=== PATIENT | female | born 1955 | race Caucasian/White ===

== ENCOUNTER 2018-09-18 10:12 | Outpatient (CLI) | payer MEDICAID | END 2018-09-18 10:13 | disposition home or self-care (01) | LOC: C.MAMMO 10:12 | DX: Z12.31 Encounter for screening mammogram for malignant neoplasm of breast (principal) ==

== ENCOUNTER 2018-11-12 16:14 | Observation (INO) | payer MEDICAID ==
[2018-11-12 18:15] LABS: BASO # 0.1 K/uL (0.0-0.2); BASO % 0.8 % (0.0-2.0); EOS # 0.2 K/uL (0.0-0.7); EOS % 2.9 % (0.0-4.0); HEMOGLOBIN 14.1 g/dL (11.0-16.0); LYMPH # 2.7 K/uL (1.0-4.3); LYMPH % 33.7 % (20.0-40.0); MEAN CELL VOLUME 86.1 fL (81.0-99.0); MEAN CORPUSCULAR HGB CONC 33.7 g/dL (33.0-37.0); MEAN PLATELET VOLUME 9.6 fL (7.2-11.7); MONO # 0.6 K/uL (0.0-0.8); MONO % 7.1 % (0.0-10.0); NEUT # 4.5 K/uL (1.8-7.0); NEUT % 55.5 % (50.0-75.0); RBC 4.87 Mil/uL (3.80-5.20); RED CELL DISTRIBUTION WIDTH 13.4 % (11.5-14.5); WHITE BLOOD COUNT 8.1 K/uL (4.8-10.8)
--- NOTE | 2018-11-12 18:19 | C.PDOC ---
History Of Present Illness 63 year old female presents to ED with complaint of having palpitations yesterday with SOB. Patient reports also having felt nausea yesterday that has resolved today. Patient reports developing frontal headache and neck pain . Patient denies chest pain, nausea, and vomiting. Time Seen by Provider: 11/12/18 17:54 Chief Complaint (Nursing): Headache History Per: Patient History/Exam Limitations: no limitations Onset/Duration Of Symptoms: Days (1) Current Symptoms Are (Timing): Still Present Quality: "Pain" Past Medical History Reviewed: Historical Data, Nursing Documentation, Vital Signs Vital Signs: Last Vital Signs Temp 97.6 F 11/12/18 16:36 Pulse 84 11/12/18 16:36 Resp 18 11/12/18 16:36 BP 160/87 H 11/12/18 16:36 Pulse Ox 99 11/12/18 16:36 - Medical History PMH: HTN, Hypercholesterolemia, Hypothyroidism Surgical History: No Surg Hx Family History: States: Unknown Family Hx - Social History Hx Alcohol Use: No Hx Substance Use: No - Immunization History Hx Tetanus Toxoid Vaccination: No Hx Influenza Vaccination: No Hx Pneumococcal Vaccination: No Review Of Systems Except As Marked, All Systems Reviewed And Found Negative. Cardiovascular: Positive for: Palpitations Respiratory: Positive for: Shortness of Breath Musculoskeletal: Positive for: Neck Pain Neurological: Positive for: Headache (head pain) Physical Exam - Physical Exam Appears: Well, Non-toxic, No Acute Distress Skin: Normal Color, Warm, Dry Head: Atraumatic, Normacephalic Eye(s): bilateral: Normal Inspection, PERRL, EOMI Nose: Normal Oral Mucosa: Moist Neck: Supple Chest: Symmetrical, No Deformity Cardiovascular: Rhythm Regular, No Murmur Respiratory: No Accessory Muscle Use, No Rales, No Rhonchi, No Wheezing Gastrointestinal/Abdominal: Normal Exam, Soft, No Tenderness Extremity: Bilateral: Atraumatic, Normal Color And Temperature, Normal ROM Neurological/Psych: Oriented x3, Normal Speech ED Course And Treatment - Laboratory Results Result Diagrams: 11/12/18 18:12 11/12/18 18:12 ECG: Interpreted By Me, Viewed By Me ECG Rhythm: Sinus Rhythm ECG Interpretation: Normal Interpretation Of ECG: Normal interval. LVH. Poor R-wave progression. No ST/T wave abnormalities. Rate From EC O2 Sat by Pulse Oximetry: 99 (in RA) Medical Decision Making Medical Decision Making: Assessment: Palpitations and headache Plan: Head CT, EKG, and CXR Labs ordered with troponin and UA Patient given Benadryl IVP and Reglan IVP case s/o to Dr. Lucero at 1900 pending labs, reevaluation and disposition Disposition Discussed With : Gail Lucero - Disposition Disposition Time: 19:00 Condition: STABLE Forms: [employer] ([place]) - Clinical Impression Clinical Impression: Headache, Palpitations - Scribe Statement The provider has reviewed the documentation as recorded by the Scribe (Lynn Salvador) All medical record entries made by the Scribe were at my direction and personally dictated by me. I have reviewed the chart and agree that the record accurately reflects my personal performance of the history, physical exam, medical decision making, and the department course for this patient. I have also personally directed, reviewed, and agree with the discharge instructions and disposition.
[2018-11-12 18:23] LABS: SQUAMOUS EPITHIAL < 1 /hpf (0-5); URINE BACTERIA RARE (<OCC); URINE BILIRUBIN NEGATIVE (NEGATIVE); URINE BLOOD NEGATIVE (NEGATIVE); URINE CLARITY Clear (Clear); URINE COLOR Straw (YELLOW); URINE GLUCOSE (UA) NORMAL (Normal); URINE LEUKOCYTE ESTERASE NEG Leu/uL (Negative); URINE PROTEIN 2+ mg/dL (NEGATIVE); URINE UROBILINOGEN NORMAL mg/dL (0.2-1.0)
[2018-11-12 18:25] LABS: ALB/GLOB RATIO 1.3 (1.0-2.1); ALBUMIN 4.6 g/dL (3.5-5.0); ALT/SGPT 17 U/L (9-52); AST/SGOT 19 U/L (14-36); BLOOD UREA NITROGEN 43 mg/dL (7-17); CALCIUM 10.9 mg/dl (8.6-10.4); GFR NON-AFRICAN AMERICAN 45
[2018-11-12] MEDS ORDERED: DiphenhydrAMINE 50 mg/ml Inj IVP STA (18:43)
[2018-11-12] MEDS ORDERED: DiphenhydrAMINE 50 mg/ml Inj ONE (19:06)
[2018-11-12] MEDS ORDERED: INSULIN GLARGINE HUM REC ANLOG 30 UNIT SQ SCH (22:00)
[2018-11-12] MEDS ORDERED: Home Med 1 UNIT (Simvastatin [Simvastatin] 40 MG) PO SCH (22:00)
[2018-11-13] MEDS ORDERED: Apap-Butalbital-Caffeine 325-50-40mg Tab PO PRN (00:55)
[2018-11-13] MEDS: Levothyroxine 125 MCG TAB PO SCH ×2 (05:45→09:52)
--- NOTE | 2018-11-13 08:26 | CT ---
Date of service: 11/12/2018 PROCEDURE: CT HEAD WITHOUT CONTRAST. HISTORY: dizziness COMPARISON: None available. TECHNIQUE: Axial computed tomography images were obtained through the head/brain without intravenous contrast. Radiation dose: Total exam DLP = 918.55 mGy-cm. This CT exam was performed using one or more of the following dose reduction techniques: Automated exposure control, adjustment of the mA and/or kV according to patient size, and/or use of iterative reconstruction technique. FINDINGS: HEMORRHAGE: No intracranial hemorrhage. BRAIN: No mass effect or edema. Scattered focal lucencies in the subcortical and periventricular white matter suggestive for chronic microvascular ischemic change. Bilateral basal ganglia calcifications. Diffuse generalized parenchymal atrophy. VENTRICLES: Unremarkable. No hydrocephalus. CALVARIUM: Unremarkable. PARANASAL SINUSES: Unremarkable as visualized. No significant inflammatory changes. MASTOID AIR CELLS: Unremarkable as visualized. No inflammatory changes. OTHER FINDINGS: Intracranial atherosclerotic calcification. IMPRESSION: No acute intracranial abnormality. Chronic microvascular ischemic changes. If symptoms persists, consider correlation with MRI. A preliminary report was generated at 8:20 p.m. on 11/12/[address] Ventura Felix from [employer].
--- NOTE | 2018-11-13 09:29 | RAD ---
Date of service: 11/12/2018 HISTORY: Shortness of breath COMPARISON: None available. TECHNIQUE: 1 view obtained. FINDINGS: LUNGS: No active pulmonary disease. PLEURA: No significant pleural effusion identified, no pneumothorax apparent. CARDIOVASCULAR: No aortic atherosclerotic calcification present. Normal cardiac size. No pulmonary vascular congestion. OSSEOUS STRUCTURES: Degenerative changes in the spine. VISUALIZED UPPER ABDOMEN: Normal. OTHER FINDINGS: None. IMPRESSION: No active disease.
--- NOTE | 2018-11-13 09:42 | CP.PCM.PN ---
Subjective - Date & Time of Evaluation Date of Evaluation: 11/13/18 Time of Evaluation: 09:38 - Subjective Subjective: 63 year old female with a past medical history of hypertension, diabetes, hypercholesterolemia and hypothyroidism who comes in after reporting dizziness and palpitations for the past couple of days. Patient states she was sitting at home when she felt her heart begin to race very fast associated with diaphoresis. Patient reports taking an Asprin afterwards and states her symptoms subsided. Patient denies this happening in the past before. Patient denies any fevers, chills, changes in vision, chest pain, shortness of breath, abdominal pain, syncopal episodes, or any other complaints. PMH: htn, dm, hypercholesterolemia, hypothyroidism Surgical history:denies Allergies: Denies Social history:Denies alcohol or tobacco use. Denies illicit drug use. Objective - Vital Signs/Intake and Output Vital Signs (last 24 hours): Temp Pulse Resp BP Pulse Ox 97.5 F L 85 20 132/83 98 11/13/18 07:00 11/13/18 07:07 11/13/18 07:00 11/13/18 07:00 11/13/18 07:00 - Medications Medications: Current Medications Acetaminophen/Butalbital/Caffeine (Fioricet) 1 tab PO Q6 PRN PRN Reason: Headache Aspirin (Ecotrin) 81 mg PO DAILY [facility] Enoxaparin Sodium (Lovenox) 40 mg SC DAILY [facility] Furosemide (Lasix) 20 mg PO DAILY [facility] Glimepiride (Amaryl) 4 mg PO BID [facility] Insulin Aspart (Novolog) 5 unit SC TID [facility] Insulin Glargine (Lantus) 30 unit SC HS [facility] Levothyroxine Sodium (Synthroid) 125 mcg PO DAILY [facility] Last Admin: 11/13/18 05:45 Dose: 125 mcg Losartan Potassium (Cozaar) 100 mg PO DAILY [facility] Metformin HCl (Glucophage) 500 mg PO BID [facility] Rosuvastatin Calcium (Crestor) 10 mg PO HS [facility] - Labs Labs: 11/12/18 18:12 11/12/18 18:12 - Head Exam Head Exam: ATRAUMATIC, NORMAL INSPECTION - Eye Exam Eye Exam: EOMI, Normal appearance, PERRL. absent: Periorbital tenderness Pupil Exam: NORMAL ACCOMODATION - ENT Exam ENT Exam: Mucous Membranes Moist, Normal Oropharynx - Respiratory Exam Respiratory Exam: Clear to Ausculation Bilateral, NORMAL BREATHING PATTERN. absent: Chest Wall Tenderness, Prolonged Expiratory Phase - Cardiovascular Exam Cardiovascular Exam: REGULAR RHYTHM, +S1, +S2 - GI/Abdominal Exam GI & Abdominal Exam: Soft, Normal Bowel Sounds. absent: Hyperactive Bowel Sounds - Extremities Exam Extremities Exam: Full ROM, Normal Capillary Refill, Normal Inspection. absent: Pedal Edema - Back Exam Back Exam: NORMAL INSPECTION. absent: CVA tenderness (R), paraspinal tenderness - Neurological Exam Neurological Exam: Alert, Awake, CN II-XII Intact, Oriented x3 - Psychiatric Exam Psychiatric exam: Normal Mood - Skin Skin Exam: Dry, Intact, Normal Color, Warm Assessment and Plan - Assessment and Plan (Free Text) Assessment: 63 year old female with a past medical history of hypertension, diabetes, hypercholesterolemia and hypothyroidism who comes in after reporting dizziness and palpitations for the past couple of days. Plan: Dizziness -EKG@ nsr, poor R wave progression -Head ct: negative for acute abnormalities, chronic microvascular changes -Echocardiogram taken. Pending final read. Hypertension -Continue Cozaar 100mg PO DAILY DM -Metformin 500mg PO BID -Glimepiride 4mg PO BID -Insulin 30 unit SC HS -Insulin Aspart 5 unit SC TID -Aspirin 81mg PO DAILY Hypothyroidism -TSH: 5.29 -Free T4 ordered .Will f/u with results. -Continue Levothyroxine Hypercholesterolemia -Continue Rosuvastatin 10mg PO HS ppx -Lovenox Plan discussed with Attending Dr. Alfred. Biju Mcintyre, PGY-2
[2018-11-13] MEDS: (Novolog) Insulin Aspart, Recombinant 100 u/ml 10 ml vial SC SCH ×3 (09:50→17:31)
[2018-11-13] MEDS: Enoxaparin 40 mg Syringe SC SCH (09:51)
--- NOTE | 2018-11-13 19:50 | CARD ---
APPROVED REPORT Date of service: 11/13/2018 EXAM: Two-dimensional and M-mode echocardiogram with Doppler and color Doppler. Other Information Quality : GoodRhythm : INDICATION Palpitations RISK FACTORS Hypertension 2D DIMENSIONS IVSd0.8 (0.7-1.1cm)LVDd4.0 (3.9-5.9cm) PWd1.1 (0.7-1.1cm)LA Sebgwx23 (18-58mL) LVDs2.3 (2.5-4.0cm)FS (%) 42.6 % LVEF (%)65.0 (>50%)LVEF ([place] C[place]'s)59.94 % M-Mode DIMENSIONS Left Atrium (MM)3.27 (2.5-4.0cm)IVSd0.85 (0.7-1.1cm) Aortic Root2.81 (2.2-3.7cm)LVDd4.48 (4.0-5.6cm) Aortic Cusp Exc.1.76 (1.5-2.0cm)PWd0.96 (0.7-1.1cm) FS (%) 37 %LVDs2.81 (2.0-3.8cm) LVEF (%)67 (>50%) Mitral Valve MV E Yroqsibx22.6cm/sMV A Xtsrzeay65.4cm/sE/A ratio0.6 TDI Lateral E' Peak V6.87cm/sMedial E' Peak V8.29cm/sE/Lateral E'7.9 E/Medial E'6.6 Tricuspid Valve TR Peak Nmkowbym069ex/sTR Peak Gr.65qfAyFQDH35jhTj LEFT VENTRICLE The left ventricle is normal size. There is normal left ventricular wall thickness. The left ventricular function is normal. The left ventricular ejection fraction is within the normal range. 70% No regional wall motion abnormalities noted. Transmitral Doppler flow pattern is Grade I-abnormal relaxation pattern. No left ventricle thrombus noted on this study. There is no ventricular septal defect visualized. There is no left ventricular aneurysm. There is no mass noted in the left ventricle. RIGHT VENTRICLE The right ventricle is normal size. There is normal right ventricular wall thickness. The right ventricular systolic function is normal. ATRIA The left atrium size is normal. The right atrium size is normal. The interatrial septum is intact with no evidence for an atrial septal defect. AORTIC VALVE The aortic valve is normal in structure and function. No aortic regurgitation is present. There is no aortic valvular stenosis. There is no aortic valvular vegetation. MITRAL VALVE The mitral valve is normal in structure and function. There is no evidence of mitral valve prolapse. There is no mitral valve stenosis. There is no mitral valve regurgitation noted. TRICUSPID VALVE The tricuspid valve is normal in structure and function. There is no tricuspid valve regurgitation noted. There is no tricuspid valve prolapse or vegetation. There is no tricuspid valve stenosis. PULMONIC VALVE The pulmonary valve is normal in structure and function. There is no pulmonic valvular regurgitation. There is no pulmonic valvular stenosis. GREAT VESSELS The aortic root is normal in size. The ascending aorta is normal in size. The pulmonary artery is normal. The IVC is normal in size and collapses >50% with inspiration. PERICARDIAL EFFUSION The pericardium appears normal. There is no pleural effusion. <Conclusion> Normal left ventricular systolic function. Normal Doppler Transmitral Doppler flow pattern is Grade I-abnormal relaxation pattern.
[2018-11-13] MEDS: (Lantus) Insulin Glargine, Recombinant SC SCH (21:39)
--- NOTE | 2018-11-13 23:20 | CP.PCM.PN ---
Subjective - Date & Time of Evaluation Date of Evaluation: 11/13/18 Time of Evaluation: 16:20 - Subjective Subjective: Patient seen and evaluated Admitted for chest pain Multiple cardiac risk factors For stress test in am Objective - Vital Signs/Intake and Output Vital Signs (last 24 hours): Temp Pulse Resp BP Pulse Ox 97.8 F 72 20 136/77 100 11/13/18 15:00 11/13/18 16:56 11/13/18 15:00 11/13/18 15:00 11/13/18 15:00 Intake and Output: 11/13/18 11/14/18 18:59 06:59 Intake Total 350 Balance 350 - Medications Medications: Current Medications Acetaminophen/Butalbital/Caffeine (Fioricet) 1 tab PO Q6 PRN PRN Reason: Headache Aspirin (Ecotrin) 81 mg PO DAILY [facility] Last Admin: 11/13/18 09:51 Dose: 81 mg Enoxaparin Sodium (Lovenox) 40 mg SC DAILY [facility] Last Admin: 11/13/18 09:51 Dose: 40 mg Furosemide (Lasix) 20 mg PO DAILY [facility] Last Admin: 11/13/18 09:51 Dose: 20 mg Glimepiride (Amaryl) 4 mg PO BID [facility] Last Admin: 11/13/18 17:29 Dose: 4 mg Insulin Aspart (Novolog) 5 unit SC TID [facility] Last Admin: 11/13/18 17:31 Dose: Not Given Insulin Glargine (Lantus) 30 unit SC HS [facility] Last Admin: 11/13/18 21:39 Dose: Not Given Levothyroxine Sodium (Synthroid) 125 mcg PO 0630 [facility] Losartan Potassium (Cozaar) 100 mg PO DAILY [facility] Last Admin: 11/13/18 09:50 Dose: 100 mg Metformin HCl (Glucophage) 500 mg PO BID [facility] Last Admin: 11/13/18 17:29 Dose: 500 mg Rosuvastatin Calcium (Crestor) 10 mg PO HS [facility] Last Admin: 11/13/18 21:38 Dose: 10 mg - Labs Labs: 11/12/18 18:12 11/12/18 18:12
[2018-11-14] MEDS: Levothyroxine 125 MCG TAB PO SCH (05:50)
[2018-11-14 08:14] LABS: BASO # 0.1 K/uL (0.0-0.2); BASO % 0.7 % (0.0-2.0); EOS # 0.3 K/uL (0.0-0.7); EOS % 3.4 % (0.0-4.0); HEMOGLOBIN 14.1 g/dL (11.0-16.0); LYMPH # 3.3 K/uL (1.0-4.3); LYMPH % 38.6 % (20.0-40.0); MEAN CORPUSCULAR HEMOGLOBIN 29.3 pg (27.0-31.0); MEAN CORPUSCULAR HGB CONC 33.7 g/dL (33.0-37.0); MEAN PLATELET VOLUME 9.9 fL (7.2-11.7); MONO # 0.8 K/uL (0.0-0.8); MONO % 8.8 % (0.0-10.0); NEUT # 4.2 K/uL (1.8-7.0); NEUT % 48.5 % (50.0-75.0); NRBC % 0.1 % (0.0-2.0); RBC 4.79 Mil/uL (3.80-5.20); RED CELL DISTRIBUTION WIDTH 13.7 % (11.5-14.5); WHITE BLOOD COUNT 8.6 K/uL (4.8-10.8)
[2018-11-14 08:40] LABS: ALB/GLOB RATIO 1.6 (1.0-2.1); ALBUMIN 4.7 g/dL (3.5-5.0); CALCIUM 10.8 mg/dl (8.6-10.4)
[2018-11-14] MEDS ORDERED: Caffeine Citrated **INJ** 20 MG/ML IV ONE (08:53)
[2018-11-14] MEDS: Sodium Chloride 0.9% 1,000 ML IV SCH ×3 (10:38→22:10)
[2018-11-14] MEDS: (Novolog) Insulin Aspart, Recombinant 100 u/ml 10 ml vial SC SCH ×6 (11:00→21:14)
[2018-11-14] MEDS: Enoxaparin 40 mg Syringe SC SCH (11:00)
--- NOTE | 2018-11-14 11:20 | CP.PCM.PN ---
Subjective - Date & Time of Evaluation Date of Evaluation: 11/14/18 Time of Evaluation: 11:20 - Subjective Subjective: Medicine Progress Note - Dr Alfred's Service Patient seen and examined at bedside. Per nursing no acute events overnight. Patient is NPO for stress test today. Denies any palpitations or headaches today. Offers no complaints at this time. Objective - Vital Signs/Intake and Output Vital Signs (last 24 hours): Temp Pulse Resp BP Pulse Ox 97.7 F 83 20 130/76 100 11/13/18 23:35 11/14/18 07:48 11/13/18 23:35 11/13/18 23:35 11/13/18 23:35 - Medications Medications: Current Medications Acetaminophen/Butalbital/Caffeine (Fioricet) 1 tab PO Q6 PRN PRN Reason: Headache Aspirin (Ecotrin) 81 mg PO DAILY [facility] Last Admin: 11/14/18 10:37 Dose: 81 mg Enoxaparin Sodium (Lovenox) 40 mg SC DAILY [facility] Last Admin: 11/14/18 11:00 Dose: Not Given Furosemide (Lasix) 20 mg PO DAILY [facility] Last Admin: 11/13/18 09:51 Dose: 20 mg Glimepiride (Amaryl) 4 mg PO BID [facility] Last Admin: 11/13/18 17:29 Dose: 4 mg Sodium Chloride (Sodium Chloride 0.9%) 1,000 mls @ 125 mls/hr IV .Q8H [facility] Last Admin: 11/14/18 10:38 Dose: 125 mls/hr Insulin Aspart (Novolog) 5 unit SC TID [facility] Last Admin: 11/14/18 11:00 Dose: Not Given Insulin Aspart (Novolog) 0 unit SC ACHS [facility]; Protocol Insulin Glargine (Lantus) 30 unit SC [facility] Last Admin: 11/13/18 21:39 Dose: Not Given Levothyroxine Sodium (Synthroid) 125 mcg PO 0630 [facility] Last Admin: 11/14/18 05:50 Dose: 125 mcg Losartan Potassium (Cozaar) 100 mg PO DAILY [facility] Last Admin: 11/14/18 10:37 Dose: 100 mg Metformin HCl (Glucophage) 500 mg PO BID [facility] Last Admin: 11/13/18 17:29 Dose: 500 mg Rosuvastatin Calcium (Crestor) 10 mg PO HS [facility] Last Admin: 11/13/18 21:38 Dose: 10 mg - Labs Labs: 11/14/18 07:50 11/14/18 07:50 - Additional Findings Additional findings: - Head Exam Head Exam: ATRAUMATIC, NORMAL INSPECTION - Eye Exam Eye Exam: EOMI, Normal appearance, PERRL. absent: Periorbital tenderness Pupil Exam: NORMAL ACCOMODATION - ENT Exam ENT Exam: Mucous Membranes Moist, Normal Oropharynx - Respiratory Exam Respiratory Exam: Clear to Ausculation Bilateral, NORMAL BREATHING PATTERN. absent: Chest Wall Tenderness, Prolonged Expiratory Phase - Cardiovascular Exam Cardiovascular Exam: REGULAR RHYTHM, +S1, +S2 - GI/Abdominal Exam GI & Abdominal Exam: Soft, Normal Bowel Sounds. absent: Hyperactive Bowel Sounds - Extremities Exam Extremities Exam: Full ROM, Normal Capillary Refill, Normal Inspection. absent: Pedal Edema - Back Exam Back Exam: NORMAL INSPECTION. absent: CVA tenderness (R), paraspinal tenderness - Neurological Exam Neurological Exam: Alert, Awake, CN II-XII Intact, Oriented x3 - Psychiatric Exam Psychiatric exam: Normal Mood - Skin Skin Exam: Dry, Intact, Normal Color, Warm Assessment and Plan - Assessment and Plan (Free Text) Assessment: 63 year old female with a past medical history of hypertension, diabetes, hypercholesterolemia and hypothyroidism who comes in after reporting dizziness and palpitations for the past couple of days. Plan: Dizziness, Palpitations -Stable, afebrile -Monitor on Telemetry -EKG@ nsr, poor R wave progression -Head CT: negative for acute abnormalities, chronic microvascular changes -Echocardiogram showed grade I abnormal relaxtion pattern -NPO for stress test today Hypertension -Continue Cozaar 100mg PO DAILY Acute Kidney Injury -BUN/Cr 51/1.3 today, unknown baseline -Started on IV fluid hydration -Avoid Nephrotoxic agents -F/U repeat BMP tomorrow DM -Metformin 500mg PO BID, Glimepiride 4mg PO BID (held) -Insulin 30 unit SC HS, Insulin Aspart 5 unit SC TID -ISS and accuchecks ACHS -Aspirin 81mg PO DAILY Hypothyroidism -TSH: 5.29 -Free T4 within normal range -Patient to have repeat TFT outpatient -Continue Levothyroxine 125mcg PO daily Hypercholesterolemia -Continue Rosuvastatin 10mg PO HS Gastritis -Pepcid 20mg PO BID GI/DVT ppx -Pepcid 20mg PO BID -Lovenox 40mg SC daily DISPO: Awaiting stress test results. Plan discussed with Dr Tima Pollack DO PGY-2
[2018-11-14] MEDS: (Lantus) Insulin Glargine, Recombinant SC SCH (21:13)
[2018-11-15] MEDS: Sodium Chloride 0.9% 1,000 ML IV SCH ×3 (00:45→10:43)
[2018-11-15] MEDS: Levothyroxine 125 MCG TAB PO SCH (06:24)
--- NOTE | 2018-11-15 06:27 | CARD ---
APPROVED REPORT Date of service: 11/14/2018 Protocol: LEXISCAN Test Type: LEXISCAN STRESS Test Indications: cp Medical History: cp Target HR: 157 bpm Resting ECG: NSR Resting Heart Rate: 103 bpm Resting Blood Pressure: 142/80mmHg submaximum (85%): 133 bpm TEST SUMMARY [id number]/80.0. INFUSIONDOSE 100:[id number]/.0. [id number]/80.0. PROCEDURE Pharmacologic stress testing was performed using 0.4mg per 5ml of regadenoson given intravenously over 7-10 seconds. POST EXERCISE Reason for Termination: Protocol Completed Target HR: No Max HR: 114 bpm 77% of Maximum Predicted HR: 157 bpm Exercise duration: 00:30 min:sec, 0 Stage Exercise capacity: 1.0METs Max Blood Pressure: 144/80mmHg Blood Pressure response to exercise: normal resting BP - appropriate response Heart Rate response to exercise: appropriate Chest Pain: No, none Angina index: 0 Arrhythmia: No, none ST Change: Yes, NS ST T CHANGES Deviation: 0 mm INTERPRETATION Stress EKG Conclusion: NEGATIVE LEXISCAN STRESS TEST NORMAL BP RESPONSE TO LEXISCAN NUCLEAR STUDIES TO BE READ SEPARATELY EXAM: Myocardial Perfusion STRESS/REST Imaging Protocol The imaging protocol used to acquire images was Stress Tc-99m/rest Tc-99m 1 day Stress Spect myocardial perfusion imaging was performed in supine position 45 minutes following the injection of 13.2 mCi of Tc-99 Myoview. Gated Rest Spect was performed 44 minutes after intravenous 32.4 mCi Tc-99 Myoview injection. The images were gated to evaluate regional wall motion and calculate ventricular ejection fraction.Images were reconstructed using backfilter projection method in short horizontal and verticle long axis. Spect slices were generated. RESTING DATA EDV45.82zySJ5.20L/min ESV11.00mlMyocardial Mass88.00g Av. Heart Rate67.00bpm EF76.00% STRESS DATA EDV58.83nqJO9.40L/min ESV12.00mlMyocardial Zjjw320.00g EF79.00% Regional WT score at stress:0.00 Regional WM score at stress:0.00 Summed WT score at stress:2.00 Av. Heart Rate74.00bpmSummed WM score at stress:0.00 LV Perf. Quant 17 Seg. SSS0.00 17 Seg. SRS0.00 17 Seg. SDS0.00 Stress Defect Extent (% LAD)0.00Rest Defect Extent (% LAD)0.00Rev. Defect Extent (% LAD)0.00 Stress Defect Extent (% LCX)0.00Rest Defect Extent (% LCX)0.00Rev. Defect Extent (% LCX)0.00 Stress Defect Extent (% RCA)0.00Rest Defect Extent (% RCA)0.00Rev. Defect Extent (% RCA)0.00 Stress Defect Extent (% LOVE)0.00Rest Defect Extent (% LOVE)0.00Rev. Defect Extent (% LOVE)0.00 IMPRESSION Normal Myocardial Perfusion exercise stress study Left Ventricle LV Function:Left ventricle systolic function is normal. The Ejection Fraction is >70%. Metabolism/Perfusion Defects: There is no stress-induced ischemia noted. There are no perfusion/metabolism defects. Conclusion 1. There is no stress-induced ischemia noted. 2. Left ventricle systolic function is normal. 3. The Ejection Fraction is >70%.
--- NOTE | 2018-11-15 06:52 | CARD ---
APPROVED REPORT Date of service: 11/12/2018 EKG Measurement Heart [id number] TN [id number] <Conclusion> Normal sinus rhythm Minimal voltage criteria for LVH, may be normal variant Anterior infarct, age undetermined Abnormal ECG
--- NOTE | 2018-11-15 07:27 | CP.PCM.PN ---
Subjective - Date & Time of Evaluation Date of Evaluation: 11/15/18 Time of Evaluation: 07:27 - Subjective Subjective: Medicine Progress Note- Dr Alfred's service Patient seen and examined at bedside. Per nursing no acute events overnight. Patient is doing well, reports having gastritis. Stress test was normal. Offers no other complaints at this time. Objective - Vital Signs/Intake and Output Vital Signs (last 24 hours): Temp Pulse Resp BP Pulse Ox 97.8 F 73 20 109/70 97 11/14/18 23:40 11/14/18 23:40 11/14/18 23:40 11/14/18 23:40 11/14/18 23:40 - Medications Medications: Current Medications Acetaminophen/Butalbital/Caffeine (Fioricet) 1 tab PO Q6 PRN PRN Reason: Headache Aspirin (Ecotrin) 81 mg PO DAILY [facility] Last Admin: 11/14/18 10:37 Dose: 81 mg Enoxaparin Sodium (Lovenox) 40 mg SC DAILY [facility] Last Admin: 11/14/18 11:00 Dose: Not Given Famotidine (Pepcid) 20 mg PO DAILY [facility] Last Admin: 11/14/18 18:18 Dose: 20 mg Furosemide (Lasix) 20 mg PO DAILY [facility] Last Admin: 11/13/18 09:51 Dose: 20 mg Glimepiride (Amaryl) 4 mg PO BID [facility] Last Admin: 11/13/18 17:29 Dose: 4 mg Sodium Chloride (Sodium Chloride 0.9%) 1,000 mls @ 125 mls/hr IV .Q8H [facility] Last Admin: 11/15/18 06:23 Dose: 125 mls/hr Insulin Aspart (Novolog) 5 unit SC TID [facility] Last Admin: 11/14/18 18:13 Dose: 5 units Insulin Aspart (Novolog) 0 unit SC ACHS [facility]; Protocol Last Admin: 11/14/18 21:14 Dose: Not Given Insulin Glargine (Lantus) 30 unit SC HS [facility] Last Admin: 11/14/18 21:13 Dose: 30 units Levothyroxine Sodium (Synthroid) 125 mcg PO 0630 [facility] Last Admin: 11/15/18 06:24 Dose: 125 mcg Losartan Potassium (Cozaar) 100 mg PO DAILY [facility] Last Admin: 11/14/18 10:37 Dose: 100 mg Metformin HCl (Glucophage) 500 mg PO BID [facility] Last Admin: 11/13/18 17:29 Dose: 500 mg Rosuvastatin Calcium (Crestor) 10 mg PO HS [facility] Last Admin: 11/14/18 21:12 Dose: 10 mg - Labs Labs: 11/14/18 07:50 11/14/18 07:50 - Additional Findings Additional findings: - Head Exam Head Exam: ATRAUMATIC, NORMAL INSPECTION - Eye Exam Eye Exam: EOMI, Normal appearance, PERRL. absent: Periorbital tenderness Pupil Exam: NORMAL ACCOMODATION - ENT Exam ENT Exam: Mucous Membranes Moist, Normal Oropharynx - Respiratory Exam Respiratory Exam: Clear to Ausculation Bilateral, NORMAL BREATHING PATTERN. absent: Chest Wall Tenderness, Prolonged Expiratory Phase - Cardiovascular Exam Cardiovascular Exam: REGULAR RHYTHM, +S1, +S2 - GI/Abdominal Exam GI & Abdominal Exam: Soft, Normal Bowel Sounds. absent: Hyperactive Bowel Sounds - Extremities Exam Extremities Exam: Full ROM, Normal Capillary Refill, Normal Inspection. absent: Pedal Edema - Back Exam Back Exam: NORMAL INSPECTION. absent: CVA tenderness (R), paraspinal tenderness - Neurological Exam Neurological Exam: Alert, Awake, CN II-XII Intact, Oriented x3 - Psychiatric Exam Psychiatric exam: Normal Mood - Skin Skin Exam: Dry, Intact, Normal Color, Warm Assessment and Plan - Assessment and Plan (Free Text) Assessment: 63 year old female with a past medical history of hypertension, diabetes, hypercholesterolemia and hypothyroidism who comes in after reporting dizziness and palpitations for the past couple of days. Plan: Dizziness, Palpitations -Stable, afebrile -Monitor on Telemetry -EKG@ nsr, poor R wave progression -Head CT: negative for acute abnormalities, chronic microvascular changes -Echocardiogram showed grade I abnormal relaxtion pattern -Went for stress test yesterday - normal Hypertension -Cozaar 100mg PO DAILY (discontinued) Acute Kidney Injury -BUN/Cr 42/1.3 today, unknown baseline -Patient reports that she has a history of kidney disease and follows with Dr Carlton philippe outpatient -Avoid Nephrotoxic agents Hyperkalemia -Potassium 6.0 this morning -Given Kayexylate 30mg PO x 1, Insulin 10 units IVP, D50 and Duonebs -Repeat BMP for 1pm -Cozaar discontinued and patient started on Norvasc 10mg PO daily DM -Metformin 500mg PO BID, Glimepiride 4mg PO BID (held) -Insulin 30 unit SC HS, Insulin Aspart 5 unit SC TID -ISS and accuchecks ACHS -Aspirin 81mg PO DAILY Hypothyroidism -TSH: 5.29 -Free T4 within normal range -Patient to have repeat TFT outpatient -Continue Levothyroxine 125mcg PO daily Hypercholesterolemia -Continue Rosuvastatin 10mg PO HS Gastritis -Pepcid 20mg PO daily GI/DVT ppx -Pepcid 20mg PO BID -Lovenox 40mg SC daily DISPO: Stress test is negative. Will f/u repeat BMP for hyperkalemia. Patient likely to be discharged home this afternoon. Patient to follow up with Cardiology, Nephrology and PMD outpatient. Plan discussed with Dr Tima Pollack DO PGY-2
[2018-11-15] MEDS: (Novolog) Insulin Aspart, Recombinant 100 u/ml 10 ml vial SC SCH ×4 (08:20→13:10)
[2018-11-15 08:34] LABS: BASO % 0.5 % (0.0-2.0); EOS # 0.2 K/uL (0.0-0.7); EOS % 3.8 % (0.0-4.0); HEMOGLOBIN 12.7 g/dL (11.0-16.0); LYMPH # 2.1 K/uL (1.0-4.3); LYMPH % 34.1 % (20.0-40.0); MEAN CELL VOLUME 87.1 fL (81.0-99.0); MEAN CORPUSCULAR HEMOGLOBIN 29.1 pg (27.0-31.0); MEAN CORPUSCULAR HGB CONC 33.4 g/dL (33.0-37.0); MEAN PLATELET VOLUME 9.6 fL (7.2-11.7); MONO # 0.5 K/uL (0.0-0.8); MONO % 8.8 % (0.0-10.0); NEUT # 3.2 K/uL (1.8-7.0); NEUT % 52.8 % (50.0-75.0); NRBC % 0.2 % (0.0-2.0); RBC 4.35 Mil/uL (3.80-5.20); RED CELL DISTRIBUTION WIDTH 13.5 % (11.5-14.5); WHITE BLOOD COUNT 6.1 K/uL (4.8-10.8)
[2018-11-15 08:52] LABS: ALB/GLOB RATIO 1.6 (1.0-2.1); ALBUMIN 4.2 g/dL (3.5-5.0); CALCIUM 9.7 mg/dl (8.6-10.4)
[2018-11-15 08:55] VITALS: TEMP 97.9; O2SAT 99
[2018-11-15] MEDS ORDERED: Dextrose 50% SYRINGE Inj (50 ml) IV STA ×2 (09:10→10:37)
[2018-11-15] MEDS ORDERED: (Novolin 70/30) NPH/Regular 70/30 Units/ml 10 ml vial SC ONE (09:10)
[2018-11-15] MEDS ORDERED: Albuterol-Ipratrop 3 mg / 0.5 (3 ml) UD INH STA (09:11)
[2018-11-15] MEDS ORDERED: (Novolin R) Insulin Human Regular 100 units/ml vial SC ONE (10:16)
[2018-11-15] MEDS: Enoxaparin 40 mg Syringe SC SCH (11:08)
[2018-11-15] MEDS ORDERED: (Novolin R) Insulin Human Regular 100 units/ml vial IVP ONE (11:13)
[2018-11-15 14:34] LABS: BLOOD UREA NITROGEN 37 mg/dL (7-17); CALCIUM 9.5 mg/dl (8.6-10.4); GFR NON-AFRICAN AMERICAN 50
[2018-11-15 16:55] VITALS: BP 135/61; PULSE 64; RESP 18
--- NOTE | 2018-11-16 00:17 | CP.PCM.PN ---
Subjective - Date & Time of Evaluation Date of Evaluation: 11/14/18 Time of Evaluation: 16:30 - Subjective Subjective: Patient seen and evaluated Admitted for chest pain Multiple cardiac risk factors Normal stress test and normal EF Objective - Vital Signs/Intake and Output Vital Signs (last 24 hours): Temp Pulse Resp BP Pulse Ox 97.9 F 64 18 135/61 99 11/15/18 15:30 11/15/18 15:30 11/15/18 15:30 11/15/18 15:30 11/15/18 15:30 - Labs Labs: 11/15/18 08:23 11/15/18 13:54
== END 2018-11-15 17:51 | disposition home or self-care (01) ==
LOC: C.ER 16:14 → C.9E 19:54 → C.6T 20:35
PROVIDERS: ADMIT Internal Medicine Pulmonary Disease; ATTEND Internal Medicine Pulmonary Disease
DX: R00.2 Palpitations (principal); E03.9 Hypothyroidism, unspecified; E11.9 Type 2 diabetes mellitus without complications; I10 Essential (primary) hypertension; R42 Dizziness and giddiness
CPT/HCPCS: 36415; 70450; 71045; 78452; 80048; 80053; 81001; 82948; 83735; 84439; 84443; 84484; 85025; 93005; 93017; 93306; 96374; 99285; A9502; G0378; J0706; J1200; J1650; J2765; J2785; J7030